=== PATIENT | male | born 1940 | race African-American/Black ===

== ENCOUNTER → 2020-04-19 | Outpatient (CLI) | payer OTHER ==
[2020-04-19 09:26] LABS: CREATININE 1.4 mg/dL (0.7-1.3)
== END ==
LOC: LAB 08:45
PROVIDERS: ATTEND Pediatrics
DX: J47.9 Bronchiectasis, uncomplicated (principal); K76.89 Other specified diseases of liver

== ENCOUNTER → 2021-04-15 | Outpatient (CLI) | payer OTHER | LOC: CAT 10:22 | PROVIDERS: ATTEND Pediatrics | DX: J84.10 Pulmonary fibrosis, unspecified (principal); J43.9 Emphysema, unspecified; R91.8 Other nonspecific abnormal finding of lung field; J98.4 Other disorders of lung; R06.02 Shortness of breath ==

== ENCOUNTER → 2021-05-04 | Outpatient (CLI) | payer OTHER ==
--- NOTE | 2021-05-04 12:51 | NUR ---
Patient tested positive for COVID when he came in for his PFT. I told the patient we would reschedule him, he was agreeable. We got him scheduled for his Radha appt and PFT on the same day.
== END ==
LOC: PUL 08:19
PROVIDERS: ATTEND Pediatrics
DX: U07.1 COVID-19 (principal); J44.9 Chronic obstructive pulmonary disease, unspecified; J84.10 Pulmonary fibrosis, unspecified

== ENCOUNTER → 2021-05-26 | Outpatient (CLI) | payer OTHER ==
--- NOTE | ~2021-05-26 | PFR/MVV ---
[facility] [place] [address] PULMONARY FUNCTION MVV/REPORT Name: NORAHCARSON Room #: [facility] Crista.#: [id number] Admission: 05/26/21 Attend Phys: Ronnie Garcia MD Discharge: Date of : 44 Report #: [id number] THIS REPORT FOR: //name// >> SPIROMETRY: (BTPS) Height: 70 in cm Weight: 195 lbs kg Exam Date: 05/26/21 PRE-RX POST-RX PRED BEST %PRED BEST %PRED %CHG FVC LITERS . 3.25 . 3.31 . 102 . 3.37 . 104 . -2 FEV1 LITERS . 2.49 . 2.64 . 106 . 2.63 . 106 . 0 FEV1/FVC % . 77 . 80 . 103 . 78 . 101 . -2 THC52-98% L/Sec . 2.96 . 2.47 . 84 . 2.60 . 88 . 5 PEF L/SEC . 7.99 . 6.90 . 86 . 7.28 . 91 . 5 FEF50/FIF50 UNITLESS . 3.78 . 5.75 . 152 . 5.23 . 138 . -9 MVV L/Min . 118 . 112 . 95 f 1/Min . . . >> LUNG VOLUMES: (BTPS) PRE-RX POST-RX PRED AVG %PRED AVG %PRED %CHG VC Liters . 3.25 . 3.31 . 102 . . . TLC Liters . 6.39 . 4.31 . 67 . . . RV Liters . 2.68 . 1.00 . 37 . . . RV/TLC % . 43 . 23 . 54 . . . FRC PL Liters . 3.61 . 1.45 . 40 . . . FRC N2 Liters . 3.61 . . . . . ERV Liters . . 0.27 . . . . IC Liters . . 2.86 . . . . >> DIFFUSION: DLCO ml/Min/mmHg . 20.3 . 13.1 . 65 . . . DL [place] ml/Min/mmHg . 20.3 . 13.1 . 65 . . . DLCO/VA ml/Min/mmHg . 3.36 . 3.17 . 94 . . . VA Liters . . 4.14 . . . . COMMENTS: COMMENTS: >> RESISTANCE: [facility] [address] [place] [address] PULMONARY FUNCTION MVV/REPORT Name: CARSON ALMAZAN Room #: [facility].#: [id number] Admission: 05/26/21 Attend Phys: Ronnie Garcia MD Discharge: Date of : 44 Report #: [id number] PRE-RX PRED AVG %PRED Raw Total cmH20/L/Sec . . 2.65 . Raw Insp cmH20/L/Sec . . 1.26 . Raw Exp cmH20/L/Sec . . 1.77 . Raw cmH20/L/Sec . 1.24 . 1.84 . 148 Gaw L/Sec/cmH20 . 0.866 . 0.545 . 63 sRaw cmH20 Sec . 4.48 . 6.55 . 146 sGaw l/cmH20 Sec . 0.223 . 0.153 . 68 Vtq Liters . . 3.57 . # = OUTSIDE 95% CONFIDENCE INTERVAL CALIBRATION: PRED: 3.00 ACTUAL: EXP 3.01 INSP 3.02 [place] [id number] [place] [id number] >> INTERPRETATION/IMPRESSION: DATE OF SERVICE: 05/26/2021 PULMONARY FUNCTION STUDIES SPIROMETRY: FEV1 is 2.64 liters (106% predicted), FVC is 3.31 liters (102% predicted), FEV1/FVC ratio is 80%. There is no significant response to bronchodilator therapy. LUNG VOLUMES: Total lung capacity is 4.31 liters (67% predicted), vital capacity is 3.31 liters (103% predicted). Diffusing capacity is decreased at 65%. IMPRESSION: Pulmonary function studies are consistent with a moderate restrictive airflow defect. There is no significant response to bronchodilator therapy. Diffusing capacity is moderately decreased. By: Ronnie Garcia MD /nt
== END ==
LOC: PUL 12:12
PROVIDERS: ATTEND Pediatrics
DX: J84.10 Pulmonary fibrosis, unspecified (principal); J44.9 Chronic obstructive pulmonary disease, unspecified; Z20.822 Contact with and (suspected) exposure to COVID-19